=== PATIENT | female | born 1980 | race Caucasian/White ===

== ENCOUNTER 2017-10-27 11:46 | Emergency (ER) | payer OTHER, SELFPAY ==
[2017-10-27 11:47] VITALS: BP 121/86; PULSE 78; RESP 16; TEMP 36; O2SAT 98; BMI 31.5
[2017-10-27 12:37] LABS: Hemoglobin 13.4 g/dl (12.0-15.0); Mean Corp Hgb Conc 34.4 g/gl (32-36); Mean Corpuscular Hgb 31.1 pg (27.0-32.0); Mean Corpuscular Volume 90.5 fL (81-99); Mean Platelet Vol. 9.8 fl (6.2-12.0); Platelet Count 350 K/mm3 (150-450); RBC Distribution Width CV 12.6 % (11.6-14.6); RBC Distribution Width SD 41.2 fl (35.1-43.9); Red Blood Count 4.31 M/mm3 (4.2-5.4); White Blood Count 9.4 K/mm3 (4.4-11.0)
[2017-10-27 12:52] LABS: Scan Indicated on CBC? Y/N NO
[2017-10-27 13:36] LABS: Bacteria 0 SEEN /hpf (None Seen); Mucous, Urine 0 SEEN /hpf (<or=2+); Squamous Epithelial Cells - UA 0 SEEN /hpf (5-10); White Blood Cells 0 SEEN /hpf (0-5)
[2017-10-27 13:39] LABS: Color, Urine Yellow (Yellow); Glucose, Dipstick Normal (Normal); Ketone-Dipstick Negative (Negative); Leukocyte Esterase-Dipstick Negative /ul (Negative); Nitrite-Dipstick Negative (Negative); Occult Blood-Urine 50 /ul (Negative); Protein-Dipstick Negative (Negative); Urine Bilirubin Dipstick Negative (Negative); Urine Clarity Clear (Clear); Urine Urobilinogen Normal (Normal)
[2017-10-27 13:44] LABS: Red Blood Cells-Urine 0-5 SEEN /hpf (0-5)
[2017-10-27 13:45] LABS: Internal QC Validated? YES +Cl - CLEAR BKGD; Pregnancy, Urine Negative Negative
--- NOTE | 2017-10-27 14:07 | ED.VISSUMM ---
- ER Visit Summary Date of Service: 10/27/17 Chief Complaint: Vaginal bleeding History of Present Illness: The patient is a 37 F presenting with heavy vaginal bleeding for the past 2 days. She has a history of regular but very heavy menstrual periods. She has not seen an [employer] physician in several years. Today her bleeding was heavier than usual and she was passing small clots. She denies chance of . Physical Examination: A female nurse chaperoned pelvic examination reveals a closed cervix with minimal bleeding but no heavy or brisk bleeding. No clots. She does have 2 small raised fleshy appearing papular type lesions around her cervix which I informed her about. I advised that she see an [employer] physician as soon as possible to have this further evaluated. Test Results: Hemoglobin is normal here. HCG negative. Her bleeding has improved somewhat. I discussed the case with Dr. Nesha Powell to arrange close follow-up. The patient is going to call today for an appointment. She will return if she is any worse. Emergency Department Course and Treatment: Follow up closely with [employer] Treatment Plan: Disposition: Home stable condition Impression: Initial encounter vaginal bleeding This note was generated with [employer] dictation software. It may contain incorrect words, spelling, and punctuation that were not noted in review of the chart prior to signing ED Disposition - Plan for ED Patient: Chief Complaint: Vag Bleeding Instructions: ED Bleed Irregular Vaginal Referrals: Chari Bourgeois MD [STAFF PHYSICIAN] - As soon as possible
--- NOTE | 2017-10-27 14:11 | ED.DCSUM_ITS ---
- ER Visit Summary Date of Service: 10/27/17 Chief Complaint: Vaginal bleeding History of Present Illness: The patient is a 37 F presenting with heavy vaginal bleeding for the past 2 days. She has a history of regular but very heavy menstrual periods. She has not seen an [employer] physician in several years. Today her bleeding was heavier than usual and she was passing small clots. She denies chance of . Physical Examination: A female nurse chaperoned pelvic examination reveals a closed cervix with minimal bleeding but no heavy or brisk bleeding. No clots. She does have 2 small raised fleshy appearing papular type lesions around her cervix which I informed her about. I advised that she see an [employer] physician as soon as possible to have this further evaluated. Test Results: Hemoglobin is normal here. HCG negative. Her bleeding has improved somewhat. I discussed the case with Dr. Nesha Powell to arrange close follow-up. The patient is going to call today for an appointment. She will return if she is any worse. Emergency Department Course and Treatment: Follow up closely with [employer] Treatment Plan: Disposition: Home stable condition Impression: Initial encounter vaginal bleeding This note was generated with [employer] dictation software. It may contain incorrect words, spelling, and punctuation that were not noted in review of the chart prior to signing ED Disposition - Plan for ED Patient: Chief Complaint: Vag Bleeding Instructions: ED Bleed Irregular Vaginal Referrals: Chari Bourgeois MD [STAFF PHYSICIAN] - As soon as possible
[2017-10-27 14:28] VITALS: BP 120/78; PULSE 82; RESP 16; O2SAT 100
== END 2017-10-27 14:28 | disposition home or self-care (01) ==
PROVIDERS: Emergency Provider Emergency Medicine; Family Provider Family Medicine; PCP Family Medicine
DX: N93.9 Abnormal uterine and vaginal bleeding, unspecified (principal); N88.9 Noninflammatory disorder of cervix uteri, unspecified; Z79.899 Other long term (current) drug therapy; Z98.51 Tubal ligation status
CPT/HCPCS: 81001; 81025; 85027; 99284; A4216

== ENCOUNTER → 2017-10-31 14:18 | Outpatient (CLI) | payer OTHER, SELFPAY ==
[2017-10-31 15:41] LABS: Free T3 2.8 pg/mL (2.18-3.98); T4 Free Direct 1.02 ng/dL (0.76-1.46); Thyroid Stim Hormone (TSH) 1.01 uIU/mL (0.358-3.74)
[2017-11-04 18:39] LABS: HPV APTIMA, High Risk Positive (Negative)
== END ==
PROVIDERS: Visit Provider Obstetrics & Gynecology
DX: Z12.4 Encounter for screening for malignant neoplasm of cervix (principal); N92.0 Excessive and frequent menstruation with regular cycle
CPT/HCPCS: 36415; 84439; 84443; 84481; 88175; G0145

== ENCOUNTER → 2017-11-01 16:10 | Outpatient (CLI) | payer OTHER, SELFPAY ==
--- NOTE | 2017-11-01 16:13 | US_ITS ---
STUDY: ULTRASOUND OF THE FEMALE PELVIS - COMPLETE REASON FOR EXAM: Female, 37 years old. Irregular menses LMP: TECHNIQUE: Transvaginal TECHNICAL QUALITY: Adequate. COMPARISON: None. FINDINGS: The uterus is anteverted and is in a midline position. The uterus measures 9.8x5.2x3 cm. Normal uterine cervix. The endometrium measures 6 mm in thickness, and is hyperechoic. There is no demonstrated endometrial mass. There is no demonstrated myometrial mass. I.U.D. - The patient does not have an I.U.D. The right ovary is visualized. The right ovary measures 3.1x1.6x2.1 cm. There is no right ovarian cyst or ovarian mass. There is no visualized right adnexal mass or complex lesion. There is normal arterial and normal venous vascularity. The left ovary is visualized. The left ovary measures 3.1x2.1x1.8 cm. There is no left ovarian cyst or ovarian mass. There is no visualized left adnexal mass or complex lesion. There is normal arterial and normal venous vascularity. There is no fluid in the cul-de-sac. The pre void volume of the bladder was 457cc. Polycystic ovary disease: No. US/Pelvic (Non ) IMPRESSION: Normal female pelvis. Electronically Signed: New Stinson MD at 17:30 EDT , Service support ,
--- NOTE | 2017-11-01 16:27 | US_ITS ---
STUDY: ULTRASOUND OF THE FEMALE PELVIS - COMPLETE REASON FOR EXAM: Female, 37 years old. Irregular menses LMP: TECHNIQUE: Transvaginal TECHNICAL QUALITY: Adequate. COMPARISON: None. FINDINGS: The uterus is anteverted and is in a midline position. The uterus measures 9.8x5.2x3 cm. Normal uterine cervix. The endometrium measures 6 mm in thickness, and is hyperechoic. There is no demonstrated endometrial mass. There is no demonstrated myometrial mass. I.U.D. - The patient does not have an I.U.D. The right ovary is visualized. The right ovary measures 3.1x1.6x2.1 cm. There is no right ovarian cyst or ovarian mass. There is no visualized right adnexal mass or complex lesion. There is normal arterial and normal venous vascularity. The left ovary is visualized. The left ovary measures 3.1x2.1x1.8 cm. There is no left ovarian cyst or ovarian mass. There is no visualized left adnexal mass or complex lesion. There is normal arterial and normal venous vascularity. There is no fluid in the cul-de-sac. The pre void volume of the bladder was 457cc. Polycystic ovary disease: No. US/Transvaginal Non- IMPRESSION: Normal female pelvis. Electronically Signed: New Stinson MD at 17:30 EDT , Service support ,
== END ==
LOC: US 16:13
PROVIDERS: Family Provider Family Medicine; PCP Family Medicine; Referring Provider Obstetrics & Gynecology; Visit Provider Obstetrics & Gynecology
DX: N92.1 Excessive and frequent menstruation with irregular cycle (principal)
CPT/HCPCS: 76830; 76856; 93976

== ENCOUNTER → 2017-11-29 13:54 | Outpatient (CLI) | payer OTHER, SELFPAY ==
--- NOTE | 2017-11-29 | IMM_PTH ---
PATIENT: ROCHELLE SANDOVAL LOC: [facility] U#:[id number] AGE/SX: 44/F ROOM: RE11/29/[address]: Dr. Chari Powell MD : 1980 BED: DIS: SPEC #: [id number] RECD: 11/30/17 14:48 STATUS: CAROL REQ #: [id number] JENNIFER: 11/29/17 00:[address]: Chari Bustillo DEPT: IMMUNOHISTOCHEMISTRY RECD BY: Sulma Mahmood ENTERED: 11/30/17 14:49 SP TYPE: IMMUNO OTHR DR: Dr. Rochelle Ramos MD Tissues: A - Uterine cervix, NOS B - Uterine cervix, NOS Procedures: p16 (initial) KI-67 (add) PHYSICIAN & INSTITUTION [place] [address] SPECIMEN INFORMATION: Tissue Source: A - Cervical biopsy 9 o'clock, B - Cervical biopsy 1 o'clock Clinical Info: LGSIL, positive HR-HPV Specimen Number: [id number] A & B CPT code: 73566, 50181 x3 METHODOLOGY: Deparaffinized sections of prefer/formalin-fixed tissue or PAP/DQ stained slides are incubated with monoclonal/polyclonal antibodies/oligonucleotide probes. Localization is made via biotin free immunoperoxidase method. Appropriate controls are performed and reacted as expected. Results on target cell population are indicated in the following table: RESULTS: ANTIBODY / CLONE RESULT Block A P16 (E6H4) positive, focal and patchy Ki-67 (30-9) negative Block B P16 (E6H4) positive, block staining Ki-67 (30-9) positive These tests were developed and their performance characteristics determined by [facility]. They may not have been cleared or approved by the U.S. Food and Drug Administration. The FDA has determined that such clearance or approval is not necessary. INTERPRETATION: A. Cervical biopsy 9 o'clock: Focal mild squamous dysplasia. B. Cervical biopsy 1 o'clock: Mild and moderate squamous dysplasia. SJ:karl 12/01/17
--- NOTE | 2017-11-29 | CER_PTH ---
PATIENT: ROCHELLE SANDOVAL LOC: [facility] U#:[id number] AGE/SX: 44/F ROOM: RE11/29/[address]: Dr. Chari Powell MD : 1980 BED: DIS: SPEC #: [id number] RECD: 11/29/17 14:22 STATUS: CAROL KASIE #: [id number] JENNIFER: 11/29/17 00:[address]: Chari Bustillo DEPT: SURGICAL PATHOLOGY RECD BY: Rohan Sanchez ENTERED: 11/29/17 14:22 SP TYPE: CERV OTHR DR: Dr. Rochelle Ramos MD Tissues: A - Uterine cervix, NOS B - Uterine cervix, NOS C - Endocervical Procedures: Surgery Specimen Level IV HEADER OPERATION: Colposcopy PRE-OP DIAGNOSIS: LGSIL, positive HR-HPV, pap 10/31/17, LMP 11/24/17 TISSUE SUBMITTED: A - Cervical biopsy 9 o'clock, B - Cervical biopsy 1 o'clock, C - ECC MICROSCOPIC DIAGNOSIS A. Cervix, 9 o'clock, biopsy: Focal mild squamous dysplasia with HPV changes (LGSIL and JIMMIE I). See comment. B. Cervix, 1 o'clock, biopsy: Mild and moderate squamous dysplasia with HPV changes (HGSIL and JIMMIE I-II). See comment. C. ECC: Fragments of benign endocervical epithelium, benign endocervical mucosa, blood and mucous, negative for dysplasia. Fragments of benign superficial endometrial tissue. SJ:karl 11/30/17 COMMENT A & B. Immunohistochemistry ([id number]) for surrogate HPV marker (p16) supports the above diagnosis. MICROSCOPIC DESCRIPTION Slides are reviewed. GROSS DESCRIPTION A - Received in fixative is one container labeled with the patient's name and designated 9 o'clock cervical biopsy. The specimen consists of one irregular fragment of light mcclendon soft tissue that measures 0.3 x 0.3 x 0.1 cm. The specimen is totally submitted in one cassette. B - Received in fixative is one container labeled with the patient's name and designated 1 o'clock cervical biopsy. The specimen consists of one irregular fragment of light mcclendon soft tissue that measures 0.4 x 0.3 x 0.1 cm. The specimen is totally submitted in one cassette. C - Received in fixative is one container labeled with the patient's name and designated ECC. The specimen consists of multiple fragments of hemorrhagic mucoid tissue that in aggregate measure 1.5 x 1.5 x 0.1 cm. The specimen is totally submitted in one cassette. / SJ:karl 11/29/17 TC:5 CPT: 08894 x3
== END ==
PROVIDERS: Family Provider Family Medicine; PCP Family Medicine; Referring Provider Obstetrics & Gynecology; Visit Provider Obstetrics & Gynecology
DX: R87.612 Low grade squamous intraepithelial lesion on cytologic smear of cervix (LGSIL) (principal)
CPT/HCPCS: 88305; 88341; 88342

== ENCOUNTER 2017-12-15 06:57 | Day surgery (SDC) | payer OTHER, SELFPAY ==
[2017-12-13 16:21] LABS: Hematocrit 41.6 % (37-47); Hemoglobin 14.1 g/dl (12.0-15.0); Mean Corp Hgb Conc 33.9 g/gl (32-36); Mean Corpuscular Hgb 30.7 pg (27.0-32.0); Mean Corpuscular Volume 90.4 fL (81-99); Mean Platelet Vol. 10.5 fl (6.2-12.0); Platelet Count 327 K/mm3 (150-450); Prothrombin Time (Protime)PT. 12.8 SECONDS (11.7-14.9); RBC Distribution Width CV 12.8 % (11.6-14.6); RBC Distribution Width SD 42.1 fl (35.1-43.9); White Blood Count 8.7 K/mm3 (4.4-11.0)
[2017-12-13 16:22] LABS: Scan Indicated on CBC? Y/N NO
[2017-12-15] VITALS (8 sets, daily range): BP systolic 79–115; BP diastolic 53–67; PULSE 62–69; RESP 16; TEMP 36.5–37.3; O2SAT 93–100; BMI 31.6
--- NOTE | 2017-12-15 | CER_PTH ---
PATIENT: ROCHELLE SANDOVAL LOC: [facility] U#:[id number] AGE/SX: 37/F ROOM: RE12/15/[address]: Dr. Chari Powell MD : 1980 BED: DIS: 12/15/2017 SPEC #: [id number] RECD: 12/15/17 11:53 STATUS: CAROL KASIE #: [id number] JENNIFER: 12/15/17 00:[address]: Chari Bustillo DEPT: SURGICAL PATHOLOGY RECD BY: Rohan Sanchez ENTERED: 12/15/17 11:53 SP TYPE: CERV OTHR DR: Dr. Rochelle Ramos MD Tissues: A - Uterine cervix, NOS B - Endocervical Procedures: Surgery Specimen Level IV Surgery Specimen Level V HEADER OPERATION: LEEP cone PRE-OP DIAGNOSIS: Excessive and frequent menstruation with irregular cycle, low-grade squamous intraepithelial lesion on cytological smear of cervix and high grade cervical dysplasia TISSUE SUBMITTED: A - Ectocervix - open at 9 o'clock, B - Endocervical curettings MICROSCOPIC DIAGNOSIS A. Ectocervix, LEEP conization: Mild squamous dysplasia with HPV changes (LGSIL and JIMMIE I). Chronic cystic cervicitis. The resection margins are free of dysplastic changes. B. Endocervical curettings: Fragments of benign endocervical mucosa, negative for dysplasia. SJ:karl 12/16/17 COMMENT Results from immunohistochemistry ([id number]) for surrogate HPV marker (p16) will be reported separately. Please make reference to previous specimen ([id number]), cervix, 9 o'clock, biopsy with diagnosis of focal mild squamous dysplasia and cervix, 1 o'clock, biopsy with diagnosis of mild and moderate squamous dysplasia with HPV changes. This case has been reviewed in consultation with Dr. Bagley who concurs with the above diagnosis. MICROSCOPIC DESCRIPTION Slides are reviewed. GROSS DESCRIPTION A - Received in fixative is one container labeled with the patient's name and designated ectocervix opened at 9 o'clock. The specimen consists of a mcclendon, indurated piece of tissue measuring 3 x 1.8 cm and up to 1 cm in thickness. No mucosal lesion is identified. The nonmucosal surface is inked black. The specimen is serially sectioned and submitted in four cassettes as follows: 1 - 12 to 3 o'clock, 2 - 3 to 6 o'clock, 3 - 6 to 9 o'clock, 4 - 9 to 12 o'clock. B - Received in fixative is one container labeled with the patient's name and designated endocervical curettings. The specimen consists of multiple irregular fragments of mcclendon soft tissue that in aggregate measure 0.4 x 0.2 x 0.1 cm. The specimen is totally submitted in one cassette. / SJ:rg 12/15/17 TC:5 CPT: 19389, 09150
--- NOTE | 2017-12-15 | IMM_PTH ---
PATIENT: ROCHELLE SANDOVAL LOC: [facility] U#:[id number] AGE/SX: 37/F ROOM: RE12/15/[address]: Dr. Chari Powell MD : 1980 BED: DIS: 12/15/2017 SPEC #: [id number] RECD: 12/16/17 11:57 STATUS: CAROL REQ #: [id number] JENNIFER: 12/15/17 00:[address]: Chari Bustillo DEPT: IMMUNOHISTOCHEMISTRY RECD BY: Sulma Mahmood ENTERED: 12/16/17 11:58 SP TYPE: IMMUNO OTHR DR: Dr. Rochelle Ramos MD Tissues: A - Uterine cervix, NOS Procedures: p16 (initial) KI-67 (add) P16 (add) PHYSICIAN & INSTITUTION [place] [address] SPECIMEN INFORMATION: Tissue Source: A - Ectocervix, open at 9 o'clock Clinical Info: Excessive and frequent menstruation with irregular cycle, LGSIL and high grade cervical dysplasia Specimen Number: [id number] A1-A4 CPT code: 51707, 05115 x7 METHODOLOGY: Deparaffinized sections of prefer/formalin-fixed tissue or PAP/DQ stained slides are incubated with monoclonal/polyclonal antibodies/oligonucleotide probes. Localization is made via biotin free immunoperoxidase method. Appropriate controls are performed and reacted as expected. Results on target cell population are indicated in the following table: RESULTS: ANTIBODY / CLONE RESULT Block A1 P16 (E6H4) negative Ki-67 (30-9) negative Block A2 P16 (E6H4) negative Ki-67 (30-9) negative Block A3 P16 (E6H4) negative Ki-67 (30-9) negative Block A4 P16 (E6H4) negative Ki-67 (30-9) negative These tests were developed and their performance characteristics determined by [facility]. They may not have been cleared or approved by the U.S. Food and Drug Administration. The FDA has determined that such clearance or approval is not necessary. INTERPRETATION: A. Ectocervix, LEEP conization: Focal mild dysplasia with HPV changes SJ:cc
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
[2017-12-15 07:21] LABS: Internal QC Validated? YES +Cl - CLEAR BKGD; Pregnancy, Urine Negative Negative
[2017-12-15] MEDS: FERRIC SUBSULFATE 8 GM SOLN (09:50)
--- NOTE | 2017-12-15 10:12 | OP.PCM_ITS ---
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 ectocervix - open at 9 o'clock. 2. endocervical curettings Estimated Blood Loss (mL): 5 Fluids Replaced: 1150ml Description of Procedure: Indications: Ms. Hugehs is a 37-year-old para 2 with a history of excessive and frequent menstruation with regular cycle and LGSIL. She had a colposcopy demonstrating JIMMIE-1 and JIMMIE-2. An office endometrial biopsy showed benign pathology. Following counseling she opted to proceed with LEEP and endometrial ablation hysteroscopy. Risks, benefits, indications and alternatives of procedures were reviewed at length. Informed consent was obtained. Procedure: The patient was taken to the operating room and signed and was performed she was placed in the dorsal supine position and induced under MAC anesthetic. She was then repositioned into dorsal lithotomy and examination under anesthesia performed. The perineum and vagina were prepped and draped in sterile fashion. Straight catheterization of the bladder was performed. A weighted speculum placed into the vagina and the cervix visualized and grasped the anterior cervical lip using a single-tooth tenaculum. A total of 20 cc of 1% lidocaine with epinephrine 1 and 100,000 was administered for paracervical block. The uterus sounded to 8 cm. The cervix was subsequently dilated and hysteroscopy performed demonstrating normal endometrial cavity without polyps or submucosal fibroids. The hysteroscope was removed and the cervix was up dilated. The cervical length was obtained at 2 cm. Seble endometrial ablative system was introduced into the uterine cavity with successful cavity integrity soaked assessment. The ablative cycle was performed 420 seconds and completed. The Seble was removed from the endometrial cavity. Hysteroscopy was again performed confirming no defects in the uterus. The hysteroscope was removed. The tenaculum was removed from the cervix. Lugol's solution was applied to the ectocervix with notable resistance at 12 to 1 o'clock. LEEP was performed with ectocervical biopsy. An endocervical curettage touch was also performed. Fulguration of the LEEP excisional bed was performed and Monsel's solution was applied with excellent hemostasis. Procedure was complete. Sponge counts were correct x2. The patient was then placed into dorsal supine position, awakened and transferred to the recovery room without complication. - Admit VTE Documentation VTE Present on Admission: No VTE Mechan Device Prophylaxis: [facility]'s VTE Pharm Prophylaxis ordered?: No
--- NOTE | 2017-12-15 10:19 | EKG12_ITS ---
Test Reason : ST DEPRESSION Blood Pressure : / mmHG Vent. Rate : 061 BPM Atrial Rate : 061 BPM P-R Int : 170 ms QRS Dur : 086 ms QT Int : 422 ms P-R-T Axes : 041 078 060 degrees QTc Int : 424 ms Normal sinus rhythm Normal ECG When compared with ECG of 26-AUG-2016 10:39, Vent. rate has increased BY 21 BPM Confirmed by ROBSON LIU, DAWNA ([id number]), primer expeditor and drier ZELDA AGUIRRE ([id number]) on 12/19/2017 2:45:25 PM Referred By: Chari Bourgeois Confirmed By:DAWNA CHANCE MD
--- NOTE | 2017-12-15 10:20 | DCINST_ITS ---
Discharge Diet: No Restrictions Discharge Activity: Return to Normal Activity, May Shower, - - No tub bath x 2 weeks, no driving for 24 hours May resume sexual activity in: 4 weeks Lifting Restrictions: 20 lb Call your doctor if you observe: Fever of 101 or Higher, Inability to urinate, Inability to have a bowel movement, Using more than one pad per hour, Shortness of breath, Chest pain, Calf discomfort, Uncontrolled pain Allergies/Adverse Reactions: Allergies adhesive Allergy (Verified 08/23/16 11:28) Rash cephalexin monohydrate [From Keflex] Allergy (Verified 08/23/16 11:28) Hives sulfamethoxazole [From Bactrim] Allergy (Verified 08/23/16 11:28) Hives trimethoprim [From Bactrim] Allergy (Verified 08/23/16 11:28) Hives morphine Adverse Reaction (Verified 08/25/16 11:16) Chest tightness Medications to take at Discharge Ibuprofen 600 mg PO TID PRN #30 tab 12/15/17 The following prescriptions were given: Ibuprofen 600 mg PO TID PRN #30 tab PRN Reason: Pain Primary Care Physician: Rochelle Ramos MD [Primary Care Provider] - Test Results: Test results from this visit will be discussed in further detail at your follow- up appointment, if applicable. Please Follow Up With: Chari Bourgeois MD When: 2-4 weeks
== END 2017-12-15 12:06 | disposition home or self-care (01) ==
LOC: SDC 06:57 → AC 06:58
PROVIDERS: Anesthesiology; Family Provider Family Medicine; PCP Family Medicine; Referring Provider Obstetrics & Gynecology; Visit Provider Obstetrics & Gynecology
PROC: 0UBC7ZZ Excision of Cervix, Via Natural or Artificial Opening (ICD-10-PCS; CPT 57522; principal; 2017-12-15 08:30)
PROC: 0U5B8ZZ Destruction of Endometrium, Via Natural or Artificial Opening Endoscopic (ICD-10-PCS; CPT 58558; 2017-12-15 08:30)
DX: N87.0 Mild cervical dysplasia (principal); N72 Inflammatory disease of cervix uteri; F17.200 Nicotine dependence, unspecified, uncomplicated; Z98.51 Tubal ligation status
CPT/HCPCS: 57522; 58563; 36415; 81025; 84484; 85027; 85610; 85730; 86850; 86900; 88305; 88307; 88341; 88342; 93005; J7120; J2405

== ENCOUNTER 2017-12-29 23:28 | Emergency (ER) | payer OTHER, SELFPAY ==
[2017-12-29 23:28] VITALS: BP 151/79; PULSE 80; RESP 20; TEMP 36.8; O2SAT 99; BMI 32.1
--- NOTE | 2017-12-30 01:32 | ED.VISSUMM ---
- ER Visit Summary Date of Service: 12/30/17 Chief Complaint: Pelvic pain and vaginal bleeding History of Present Illness: The patient is a 37 F presenting for 5 days of pelvic pain and vaginal bleeding after a LEEP procedure and uterine ablation 2 weeks ago. Patient had the uterine ablation performed due to heavy uterine bleeding. 5 days ago she began having pelvic pain and vaginal bleeding, and she states the vaginal bleeding is a brown discharge with a foul odor, sometimes with blood noted. She thought it was her period. She has passed one mass of a blue tinged tissue. She is having sharp stabbing pelvic pain that is different from her normal achy menstrual cramps. No dysuria. No dizziness, fever, chest pain, shortness of breath, nausea or vomiting. She is having loose stool for 3 days. Physical Examination: Vital signs: afebrile, hemodynamically stable, no hypoxia on room air General: well nourished, well developed, in no distress Skin: warm, dry, no rash, no pallor HEENT: normocephalic and atraumatic; PERRL, EOMI, moist mucous membranes Cardiovascular: regular rate and rhythm without murmurs, no peripheral edema, 2+ pulses all distal extremities Respiratory: No increased work of breathing, lungs are clear to auscultation bilaterally, no rales, rhonchi or wheezing Abdominal: Abdomen is soft, tender in the lower quadrants with normoactive bowel sounds, no guarding or rebound, no masses : no external genital lesions; thin whitish brown homogenous discharge with foul odor, cervical tenderness, unable to visualize the cervix secondary to lack of appropriate speculum light source; no adnexal tenderness or masses MSK: Moves all extremities, no deformities, normal strength Neuro: Awake and alert, oriented ?4. No facial droop, sensation and motor function intact and symmetric Test Results: Abnormal Lab Results 12/30/17 12/30/17 12/30/17 00:40 00:40 01:47 WBC 14.3 H RBC 4.17 L Hgb 12.8 Hct 37.8 MCV 90.6 MCH 30.7 MCHC 33.9 RDW 12.5 RDW Differential 40.9 Plt Count 405 MPV 9.8 Immature Gran % (Auto) 0.400 Neut % (Auto) 72.4 H Lymph % (Auto) 19.5 [place] % (Auto) 5.7 Eos % (Auto) 1.7 Baso % (Auto) 0.3 Absolute Neuts (auto) 10.3 H Absolute Lymphs (auto) 2.78 Total Counted Not Reportable Sodium Potassium Chloride Carbon Dioxide Anion Gap BUN Creatinine Estim Creat Clear Calc Est GFR (MDRD) Af Amer Est GFR (MDRD) Non-Af BUN/Creatinine Ratio Glucose Lactic Acid Calcium Urine Color Yellow Urine Clarity Sl. Cloudy Urine pH 6.5 Ur Specific [place] 1.015 Urine Protein Negative Urine Glucose (UA) Normal Urine Ketones Negative Urine Occult Blood 150 H Urine Nitrite Negative Urine Bilirubin Negative Urine Urobilinogen Normal Ur Leukocyte Esterase 500 H Urine RBC 0-5 SEEN Urine WBC 5-10 SEEN Ur Squamous Epith Cells 0-5 SEEN Urine Bacteria RARE Urine Mucus 0 SEEN Urine Test Negative 12/30/17 12/30/17 12/30/17 01:47 01:47 02:34 WBC RBC Hgb Hct MCV MCH MCHC RDW RDW Differential Plt Count MPV Immature Gran % (Auto) Neut % (Auto) Lymph % (Auto) [place] % (Auto) Eos % (Auto) Baso % (Auto) Absolute Neuts (auto) Absolute Lymphs (auto) Total Counted Sodium 137 Potassium 4.8 Chloride 106 Carbon Dioxide 26.0 Anion Gap 5 BUN 12 Creatinine 0.69 Estim Creat Clear Calc 85.05 Est GFR (MDRD) Af Amer 122 Est GFR (MDRD) Non-Af 101 BUN/Creatinine Ratio 17.3 Glucose 100 Lactic Acid Cancelled 0.8 Calcium 8.8 Urine Color Urine Clarity Urine pH Ur Specific [place] Urine Protein Urine Glucose (UA) Urine Ketones Urine Occult Blood Urine Nitrite Urine Bilirubin Urine Urobilinogen Ur Leukocyte Esterase Urine RBC Urine WBC Ur Squamous Epith Cells Urine Bacteria Urine Mucus Urine Test Medications Given Discontinued Medications Sodium Chloride () 1,000 mls @ 1,000 mls/hr IV .Q1H ONE Stop: 12/30/17 02:29 Last Admin: 12/30/17 02:12 Dose: 1,000 mls/hr Ketorolac Tromethamine (Toradol) 15 mg IV X1 ONE Stop: 12/30/17 01:32 Last Admin: 12/30/17 02:12 Dose: 15 mg Ketorolac Tromethamine (Toradol) 15 mg IV X1 ONE Stop: 12/30/17 03:27 Last Admin: 12/30/17 03:38 Dose: 15 mg Metronidazole (Flagyl) 500 mg PO X1 ONE Stop: 12/30/17 03:30 Last Admin: 12/30/17 03:37 Dose: 500 mg Emergency Department Course and Treatment: Patient was given IV fluids and Toradol for her discomfort. She had improvement of her pelvic pain with the Toradol. negative. Urine showed leukocytosis with mild pyuria. Patient did not have any complaint of urinary symptoms. Patient had leukocytosis of 14.3. No electrolyte derangements. Lactate was normal. Patient's examination did show a malodorous brownish white thin discharge. Patient was discussed with Dr. Alvarado, who states this is a normal finding after the procedures the patient had. No pelvic ultrasound is necessary at this time. He did recommend starting patient on metronidazole in case there is not a component of bacterial vaginosis, as the change in pH from the LEEP procedure and uterine ablation can result in overgrowth of the normal vaginal lourdes. Patient was started on metronidazole. She received an additional dose of Toradol and will use [id number] NSAIDs at home as needed for pain. 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 Patient was discharged home in improved condition. Treatment Plan: [] Disposition: [] Impression: Postprocedural vaginal discharge and postprocedural pelvic pain, bacterial vaginosis This note was generated with [employer] dictation software. It may contain incorrect words, spelling, and punctuation that were not noted in review of the chart prior to signing ED Disposition - Plan for ED Patient: Disposition: Home or Assisted Living Chief Complaint: Female C/O Instructions: Vaginal Infection: Bacterial Vaginosis, ED Pelvic Pain [facility]O Prescriptions: RX: Metronidazole 500 mg PO BID #13 tab Referrals: Rochelle Ramos MD [Primary Care Provider] - Chari Bourgeois MD [STAFF PHYSICIAN] - 1 Week if not improving Additional Instructions: Please follow-up with Dr. Neena Powell if you continue to have concerns about the vaginal discharge and pelvic pain. Use naproxen or ibuprofen as needed for pain. Take the antibiotic twice daily for 5 days. Do not drink alcohol while taking this medication. If you have any worsening of your condition or any new concerning symptoms, please return immediately to the emergency department for another evaluation.
[2017-12-30 01:48] LABS: Color, Urine Yellow (Yellow); Glucose, Dipstick Normal (Normal); Ketone-Dipstick Negative (Negative); Leukocyte Esterase-Dipstick 500 /ul (Negative); Mucous, Urine 0 SEEN /hpf (<or=2+); Nitrite-Dipstick Negative (Negative); Occult Blood-Urine 150 /ul (Negative); Protein-Dipstick Negative (Negative); Specific Gravity, Urine 1.015 (1.002-1.030); Urine Bilirubin Dipstick Negative (Negative); Urine Clarity Sl. Cloudy (Clear); Urine Urobilinogen Normal (Normal); Urine pH 6.5 (5.0 - 8.0)
[2017-12-30 01:52] LABS: Internal QC Validated? YES +Cl - CLEAR BKGD; Pregnancy, Urine Negative Negative
[2017-12-30 01:58] LABS: Bacteria RARE /hpf (None Seen); Red Blood Cells-Urine 0-5 SEEN /hpf (0-5); Squamous Epithelial Cells - UA 0-5 SEEN /hpf (5-10); White Blood Cells 5-10 SEEN /hpf (0-5)
[2017-12-30 01:59] LABS: Absolute Lymphocyte Count 2.78 X10^3/ul (0.83-4.51); Absolute Neutrophil Count 10.3 X10^3/uL (2.0-7.7); Basophil# 0.04 X10^3/uL; Basophil% 0.3 % (0-1); Eosinophil# 0.24 X10^3/uL; Eosinophils% 1.7 % (0-5); Hematocrit 37.8 % (37-47); Hemoglobin 12.8 g/dl (12.0-15.0); Lymphocyte # 2.78 X10^3/ul (4.0); Lymphocyte % 19.5 % (19-41); Mean Corp Hgb Conc 33.9 g/gl (32-36); Mean Corpuscular Hgb 30.7 pg (27.0-32.0); Mean Corpuscular Volume 90.6 fL (81-99); Mean Platelet Vol. 9.8 fl (6.2-12.0); Monocyte# 0.82 X10^3/uL; Monocyte% 5.7 % (0-10); Neutrophil # 10.34 X10^3/uL (2.7-7.7); Neutrophil % 72.4 % (47-70); POSITIVE COUNT NO; POSITIVE DIFFERENTIAL NO; POSITIVE MORPHOLOGY NO; Platelet Count 405 K/mm3 (150-450); RBC Distribution Width CV 12.5 % (11.6-14.6); RBC Distribution Width SD 40.9 fl (35.1-43.9); Red Blood Count 4.17 M/mm3 (4.2-5.4); White Blood Count 14.3 K/mm3 (4.4-11.0)
[2017-12-30] MEDS: Ketorolac 15 MG/ML Vial IV ×2 (02:12→03:38)
[2017-12-30] MEDS: 0.9% Normal Saline 1,000 ML 1000 ML IV (02:12)
[2017-12-30 02:24] LABS: Anion Gap 5 (5-15); BUN 12 mg/dL (7-18); BUN/Creat Ratio 17.3 RATIO (10-20); Calcium,Total 8.8 mg/dL (8.5-10.1); Chloride 106 mmol/L (98-107); Creatinine, Serum 0.69 mg/dL (0.55-1.02); EST Glomerular Filtration Rate 101 mL/min (>60); Est Glom Filt Rate - Afr Amer 122 mL/min (>60); Estimated Creatinine Clearance 85.05 ml/min; Glucose 100 mg/dL (74-106); Potassium 4.8 mmol/L (3.5-5.1); Sodium Level 137 mmol/L (136-145)
[2017-12-30 03:18] LABS: Lactic Acid 0.8 mmol/L (0.4-2.0)
[2017-12-30] MEDS: metroNIDAZOLE 500 MG Tablet PO (03:37)
--- NOTE | 2017-12-30 03:43 | ED.DEP ---
ED Disposition - Plan for ED Patient: Disposition: Home or Assisted Living Chief Complaint: Female C/O Instructions: Vaginal Infection: Bacterial Vaginosis, ED Pelvic Pain UKO Prescriptions: Metronidazole 500 mg PO BID #13 tab Referrals: Rochelle Ramos MD [Primary Care Provider] - Chari Bourgeois MD [STAFF PHYSICIAN] - 1 Week if not improving Additional Instructions: Please follow-up with Dr. Neena Powell if you continue to have concerns about the vaginal discharge and pelvic pain. Use naproxen or ibuprofen as needed for pain. Take the antibiotic twice daily for 5 days. Do not drink alcohol while taking this medication. If you have any worsening of your condition or any new concerning symptoms, please return immediately to the emergency department for another evaluation.
[2017-12-30 03:51] VITALS: BP 125/86; PULSE 60; RESP 18; O2SAT 97
== END 2017-12-30 03:52 | disposition home or self-care (01) ==
PROVIDERS: Emergency Provider Emergency Medicine; Family Provider Family Medicine; PCP Family Medicine
DX: N76.0 Acute vaginitis (principal); G89.18 Other acute postprocedural pain; R10.2 Pelvic and perineal pain; N89.8 Other specified noninflammatory disorders of vagina; N39.0 Urinary tract infection, site not specified; R19.7 Diarrhea, unspecified
CPT/HCPCS: 36415; 80048; 81001; 81025; 83605; 85025; 96374; 96376; 99284; J7030; A4216

== ENCOUNTER 2018-04-23 10:38 | Emergency (ER) | payer OTHER, SELFPAY ==
[2018-04-22 09:19] VITALS: BMI 32.1
[2018-04-23 10:40] VITALS: BP 133/68; PULSE 62; RESP 12; TEMP 36.8; O2SAT 99; BMI 29.3
--- NOTE | 2018-04-23 10:59 | ED.VISSUMM ---
- ER Visit Summary Date of Service: 04/23/18 Chief Complaint: Neck pain back pain History of Present Illness: The patient is a 38 F who presents with neck and back pain myalgias and slight headache, she has some upper airway congestion. She denies any fever but she is complaining of chills. This is been ongoing for about 4 days. She denies any chest pain but she is complaining of right neck pain anteriorly also. Physical Examination: She has unremarkable vitals, heart is regular lungs are clear bilaterally she has upper airway congestion, swollen nasal turbinates, she has postnasal drip and right-sided anterior lymphadenopathy. She has paraspinal neck pain and upper back pain including part of the trapezius. She has normal strength and sensation distally in both arms able to ambulate well. Emergency Department Course and Treatment: Patient has upper airway congestion with myalgias, this is likely a viral illness. It has been ongoing for 4 days even if it is influenza is outside any treat regardless she appears well she is clear lungs and has normal vitals we will treat her symptomatically. Disposition: Discharge stable condition Impression: Myalgias Upper airway congestion This note was generated with [employer] dictation software. It may contain incorrect words, spelling, and punctuation that were not noted in review of the chart prior to signing ED Disposition - Plan for ED Patient: Disposition: Home or Assisted Living Instructions: ED Muscle Aching, ED URI Viral Prescriptions: Naproxen [Naprosyn] 500 mg PO BID PRN #20 tab Cyclobenzaprine [Flexeril] 10 mg PO TID PRN #20 tab PRN Reason: Muscle Spasm Referrals: Rochelle Ramos MD [Primary Care Provider] - 3-5 Days
== END 2018-04-23 11:36 | disposition home or self-care (01) ==
PROVIDERS: Emergency Provider Emergency Medicine; Family Provider Family Medicine; PCP Family Medicine
DX: M79.10 Myalgia, unspecified site (principal); J06.9 Acute upper respiratory infection, unspecified; Z72.0 Tobacco use
CPT/HCPCS: 99282

== ENCOUNTER 2018-05-02 09:05 | Emergency (ER) | payer OTHER, SELFPAY ==
[2018-05-02 09:06] VITALS: BP 135/88; PULSE 101; RESP 15; TEMP 36.3; BMI 29.5
--- NOTE | 2018-05-02 09:20 | CT_ITS ---
STUDY: CT ABDOMEN AND PELVIS WITHOUT CONTRAST REASON FOR EXAM: Female, 38 years old. Left-sided flank pain. RADIATION DOSAGE (If Supplied By Facility): CTDIvol = ( 8.61 ) mGy, DLP = ( 387.04 ) mGycm TECHNIQUE: Transaxial images were obtained from the dome of the diaphragm to the symphysis pubis without oral contrast, and without intravenous contrast. Sagittal and coronal images were reconstructed. Individualized dose optimization techniques were used for this CT. COMPARISON: Comparison is made with prior study dated August 23, 2016. FINDINGS: The visualized lung bases are unremarkable. The visualized portions of the heart are within normal limits. Normal liver. The patient is status post cholecystectomy. Normal spleen. Normal pancreas. Normal bilateral adrenal glands. Punctate calcification in the upper pole calyx of the right kidney. Punctate calcification in the lower pole calyx of the right kidney. There is also evidence of a 2 mm calculus in the lower pole calyx of the right kidney. 2 mm calculus in the lower pole calyx of the left kidney. Mild degree of left hydronephrosis. A 2 mm calculus is seen at the base of the bladder on the left side suggestive of a recently passed calculus. Normal visualized stomach. Normal small intestine. Normal colon. The appendix is visualized and appears normal. Normal abdominal aorta. Normal inferior vena cava. Normal retroperitoneum. Normal urinary bladder. There is evidence of bilateral tubal ligation. Follicles are seen in the left ovary. Normal abdominal wall. Normal osseous structures. CT/Abdomen/Pelvis without Cont IMPRESSION: Mild left hydronephrosis. 2 mm calculus at the base of the bladder on the left side suggestive of a recently passed calculus. Small bilateral nonobstructive intrarenal calculi. Electronically Signed: Shilo Santos, at 10:27 EDT , Service support ,
--- NOTE | 2018-05-02 09:20 | CALC_PTH ---
PATIENT: ROCHELLE SANDOVAL LOC: ED U#:[id number] AGE/SX: 38/F ROOM: RE05/02/[address]: Dr. Lars Branch DO : 1980 BED: DIS: 05/02/2018 SPEC #: [id number] RECD: 05/02/18 10:37 STATUS: CAROL KASIE #: [id number] JENNIFER: 05/02/18 09:[address]: Lars Branch DEPT: SURGICAL PATHOLOGY RECD BY: Alan Hernandez ENTERED: 05/02/18 11:34 SP TYPE: Calculi OTHR DR: Dr. Rochelle Ramos MD Tissues: CALCULI Procedures: Surgery Specimen Level I HEADER OPERATION: Not noted PRE-OP DIAGNOSIS: Kidney stone TISSUE SUBMITTED: Calculi GROSS DIAGNOSIS A fragment of stone, clinically kidney stone, submitted for analysis. SJ:karl 05/02/18 COMMENT The calculus is submitted in its entirety for chemical stone analysis. The results from this study will be reported separately. GROSS DESCRIPTION Received is one container labeled with the patient's name and not further designated. The specimen consists of a fragment of brownish black stone measuring 0.3 x 0.2 x 0.1 cm. The entire specimen is submitted for stone analysis. / MAL:karl 05/02/18 CPT: 05008
--- NOTE | 2018-05-02 09:22 | ED.VISSUMM ---
- ER Visit Summary Date of Service: 05/02/18 Chief Complaint: Left flank pain History of Present Illness: The patient is a 38 F who presents with left flank pain that began today while she was at work. Patient states the pain radiated to her left anterior abdomen. Patient states the pain feels similar to prior kidney stones. Patient states it is been approximately 10 years since her last kidney stone. Patient admits to some mild hematuria today but denies any dysuria. Patient admits to some nausea but denies any vomiting. Patient denies any diarrhea, melena, or hematochezia. Physical Examination: Vital signs are stable. Patient is afebrile. Patient is in no acute distress. Oral mucosa is pink and moist. Neck is supple. Trachea is midline. Heart was regular rate and rhythm. Lungs are clear and equal bilateral. Abdomen is soft. Bowel sounds are normal. There is some mild left mid abdominal tenderness and left CVA tenderness. There is no rebound or guarding noted. Cranial nerves II through XII are intact. There are no focal motor or sensory deficits noted. The remaining physical exam is within normal limits. Test Results: Urinalysis does not show any evidence of urinary tract infection. There is some mild hematuria. CT scan of the abdomen pelvis shows punctate stones in both kidneys. There is a 2 mm calculus in the bladder with mild left hydronephrosis. There was a small stone in the urine. This was sent for analysis. Emergency Department Course and Treatment: Patient was given Toradol and Zofran here. Patient was given IV fluids. Patient felt better on reevaluation. Patient was instructed to drink plenty of fluids. Patient was instructed to follow-up with her primary care physician in 5-7 days. Patient understood and was agreeable with the plan. All questions were answered. Disposition: Discharge home Impression: Ureteral lithiasis This note was generated with [employer] dictation software. It may contain incorrect words, spelling, and punctuation that were not noted in review of the chart prior to signing ED Disposition - Plan for ED Patient: Disposition: Home or Assisted Living Diagnosis: Ureteral calculus, left Instructions: ED Stone Renal Passed Referrals: Rochelle Ramos MD [Primary Care Provider] - 5-7 Days
--- NOTE | 2018-05-02 09:25 | ED.DCSUM_ITS ---
- ER Visit Summary Date of Service: 05/02/18 Chief Complaint: Left flank pain History of Present Illness: The patient is a 38 F who presents with left flank pain that began today while she was at work. Patient states the pain radiated to her left anterior abdomen. Patient states the pain feels similar to prior kidney stones. Patient states it is been approximately 10 years since her last kidney stone. Patient admits to some mild hematuria today but denies any dysuria. Patient admits to some nausea but denies any vomiting. Patient denies any diarrhea, melena, or hematochezia. Physical Examination: Vital signs are stable. Patient is afebrile. Patient is in no acute distress. Oral mucosa is pink and moist. Neck is supple. Trachea is midline. Heart was regular rate and rhythm. Lungs are clear and equal bilateral. Abdomen is soft. Bowel sounds are normal. There is some mild left mid abdominal tenderness and left CVA tenderness. There is no rebound or guarding noted. Cranial nerves II through XII are intact. There are no focal motor or sensory deficits noted. The remaining physical exam is within normal limits. Test Results: Urinalysis does not show any evidence of urinary tract infection. There is some mild hematuria. CT scan of the abdomen pelvis shows punctate stones in both kidneys. There is a 2 mm calculus in the bladder with mild left hydronephrosis. There was a small stone in the urine. This was sent for analysis. Emergency Department Course and Treatment: Patient was given Toradol and Zofran here. Patient was given IV fluids. Patient felt better on reevaluation. Fidencio alisha was instructed to drink plenty of fluids. Patient was instructed to follow-up with her primary care physician in 5-7 days. Patient understood and was agreeable with the plan. All questions were answered. Disposition: Discharge home Impression: Ureteral lithiasis This note was generated with [employer] dictation software. It may contain incorrect words, spelling, and punctuation that were not noted in review of the chart prior to signing ED Disposition - Plan for ED Patient: Disposition: Home or Assisted Living Diagnosis: Ureteral calculus, left Instructions: ED Stone Renal Passed Referrals: Rochelle Ramos MD [Primary Care Provider] - 5-7 Days
[2018-05-02 09:27] LABS: Bacteria 0 SEEN /hpf (None Seen); Mucous, Urine 0 SEEN /hpf (<or=2+); Squamous Epithelial Cells - UA 0 SEEN /hpf (5-10); White Blood Cells 0 SEEN /hpf (0-5)
[2018-05-02 09:36] LABS: Color, Urine Yellow (Yellow); Glucose, Dipstick Normal (Normal); Ketone-Dipstick Negative (Negative); Leukocyte Esterase-Dipstick Negative /ul (Negative); Nitrite-Dipstick Negative (Negative); Occult Blood-Urine 150 /ul (Negative); Protein-Dipstick Negative (Negative); Specific Gravity, Urine 1.015 (1.002-1.030); Urine Bilirubin Dipstick Negative (Negative); Urine Clarity Clear (Clear); Urine Urobilinogen Normal (Normal); Urine pH 6.5 (5.0 - 8.0)
[2018-05-02] MEDS: 0.9% Normal Saline 1,000 ML 250 ML IV (09:37)
[2018-05-02] MEDS: Ondansetron 4 MG/2 ML Vial IV (09:37)
[2018-05-02] MEDS: Ketorolac 30 MG/ML Syringe IV (09:43)
[2018-05-02 10:02] LABS: Red Blood Cells-Urine 5-10 SEEN /hpf (0-5)
[2018-05-02 12:01] VITALS: BP 118/70; PULSE 61; RESP 16; O2SAT 97
[2018-05-08 20:06] LABS: Ca Oxalate, Monohydrate 95 % (.)
== END 2018-05-02 12:02 | disposition home or self-care (01) ==
PROVIDERS: Emergency Provider Emergency Medicine; Family Provider Family Medicine; PCP Family Medicine
DX: N13.2 Hydronephrosis with renal and ureteral calculous obstruction (principal); N21.0 Calculus in bladder; R31.9 Hematuria, unspecified; Z72.0 Tobacco use; Z87.442 Personal history of urinary calculi
CPT/HCPCS: 74176; 81001; 82360; 88300; 96361; 96374; 96375; 99284; J7030; A4216; J2405

== ENCOUNTER → 2019-04-16 16:15 | Outpatient (CLI) | payer OTHER, SELFPAY ==
[2019-04-16 18:39] LABS: Thyroid Stim Hormone (TSH) 1.38 uIU/mL (0.358-3.74)
== END ==
PROVIDERS: PCP Family Medicine; Referring Provider Family Medicine; Visit Provider Family Medicine
DX: L80 Vitiligo (principal)
CPT/HCPCS: 36415; 84443

== ENCOUNTER → 2020-02-20 | Outpatient (CLI) | payer OTHER, SELFPAY ==
[2020-02-25 16:23] LABS: HPV Reflexed? NOT INDICATED
== END | disposition home or self-care (01) ==
PROVIDERS: PCP Family Medicine; Referring Provider Family Medicine; Visit Provider Family Medicine
DX: Z12.4 Encounter for screening for malignant neoplasm of cervix (principal)
CPT/HCPCS: 88175; G0145

== ENCOUNTER 2020-09-08 12:48 | Emergency (ER) | payer OTHER, SELFPAY ==
[2020-09-08 12:49] VITALS: BP 175/99; PULSE 94; RESP 16; TEMP 37.3; O2SAT 98; BMI 32.8
--- NOTE | 2020-09-08 13:19 | EX.ED.UPPERE ---
HPI History of Present Illness Chief Complaint: Upper Extremity Injury Informant: patient Narrative Narrative: Patient's been having pain on her left shoulder area for about a week and a half maybe 2 weeks. Occasionally it radiates down past the elbow goes into her hand. Occasionally she feels tingling. She has no trauma or injury. No recent infections. No fevers or chills. Nothing that she can really think of makes it better or worse. Sometimes moving it bothers it but other times it does not. She has had no change in behavior activity or her work. She does not have any weakness. [facility] Medical History ADD (attention deficit disorder) Home Medications cyclobenzaprine 10 mg PO TID PRN #9 tab 09/08/20 [Rx Last Taken Unknown] loratadine [Claritin] 10 mg PO DAILY PRN 09/08/20 [History Last Taken Unknown] methylphenidate HCl [Concerta] 54 mg PO DAILY 09/08/20 [History Last Taken Unknown] naproxen [Naprosyn] 500 mg PO BID PRN #20 tab 09/08/20 [Rx Last Taken Unknown] Allergy/AdvReac Type Severity Reaction Status Date / Time adhesive Allergy Rash Verified 09/08/20 12:51 cephalexin monohydrate Allergy Hives Verified 09/08/20 12:51 [From Keflex] sulfamethoxazole Allergy Hives Verified 09/08/20 12:51 [From Bactrim] trimethoprim [From Bactrim] Allergy Hives Verified 09/08/20 12:51 morphine AdvReac Chest Verified 09/08/20 12:51 tightness Social History Smoking Status: Current every day smoker tobacco type: cigarettes ROS ROS ED Constitutional Constitutional ED: Denies frequent falls ENT ENT ED: Denies sore throat Cardiovascular Cardiovascular: Denies chest pain, palpitations or racing heartbeat Respiratory/Chest Respiratory/Chest: Denies cough, dyspnea or dyspnea on exertion Gastrointestinal Gastrointestinal: Denies abdominal pain, nausea or vomiting Musculoskeletal Musculoskeletal: Reports myalgias and neck pain Integumentary Denies rash Neurologic Neurologic: Reports paresthesias; Denies headache(s) or weakness Psychiatric Psychiatric: Denies depression Hematologic/Lymphatic Hematologic/Lymphatic: Denies easy bleeding or easy bruising Allergic/Immunologic Allergic/Immunologic ED: Denies urticaria EXAM Physical Exam Const Vital Signs: 09/08/20 12:49 Temperature 99.1 F Temperature Source Temporal Pulse Rate 94 Respiratory Rate 16 Blood Pressure 175/99 H Blood Pressure Mean 124 Pulse Ox 98 Oxygen Delivery Method Room Air Positive well nourished and well developed General Appearance ED: well developed and NAD HEENT normocephalic and atraumatic Neck supple Neck Narrative: Patient does have some exacerbation of her symptoms with axial load of her spine. No focal tenderness externally though. Chest Wall inspection of chest normal Resp normal respiratory effort and clear to auscultation bilaterally Cardio regular rate and regular rhythm GI non-tender Palpation: soft Back/Spine no CVA tenderness Back/Spine Narrative: See above. Extremity normal to inspection Extremity Narrative: There is a little bit of crepitance with motion of left shoulder. But no significant pain with range of motion. Is not red or warm. She has good distal sensation. Great distal pulses and capillary refill. She can tell exactly what finger on touching. 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 Neuro oriented x3 Neuro Narrative: See above. Sensorium / Orientation: alert MDM MDM MDM Narrative Medical decision making narrative: Patient presents with pain on her left shoulder area and slightly in her neck. Occasionally will radiate down the arm. She has no trauma. I do not think x-rays are going to show us the cause of this. No sign of a septic joint. This ask like a cervical radiculopathy. We discussed altering the way she looks at her computer and sitting position. We will also use nonsteroidals. She will use ice and rest. If she develops weakness worsening pain, color change or other symptoms she should return. Discharge Plan Triage Chief Complaint: Upper Extremity Injury ED Provider: Carrington Watt Dx/Rx/DC Orders Clinical Impression: Cervical radiculopathy Instructions: ED Radiculopathy, Cervical Prescriptions: New naproxen [Naprosyn] 500 mg tablet 500 mg PO BID PRN (Reason: pain) Qty: 20 RF: 0 cyclobenzaprine 10 mg tablet 10 mg PO TID PRN (Reason: muscle spasm) Qty: 9 RF: 0 No Action methylphenidate HCl [Concerta] 54 mg Tablet Extended Release 24hr 54 mg PO DAILY RF: 0 loratadine [Claritin] 10 mg Tablet 10 mg PO DAILY PRN (Reason: allergies) RF: 0 Primary Care Provider: Rochelle Ramos Referrals: Rochelle Ramos MD [Primary Care Provider] - 3-5 Days if not improving Disposition Disposition: Home, Self Care
[2020-09-08] MEDS: Naproxen 375 MG Tablet PO (13:57)
== END 2020-09-08 14:00 | disposition home or self-care (01) ==
PROVIDERS: Emergency Provider Emergency Medicine; PCP Family Medicine
DX: M54.12 Radiculopathy, cervical region (principal); F98.8 Other specified behavioral and emotional disorders with onset usually occurring in childhood and adolescence; F17.210 Nicotine dependence, cigarettes, uncomplicated; Z79.899 Other long term (current) drug therapy
CPT/HCPCS: 99283

== ENCOUNTER 2020-09-21 15:20 | Emergency (ER) | payer OTHER, SELFPAY ==
[2020-09-21 15:22] VITALS: BP 180/116; PULSE 89; RESP 14; TEMP 36.8; O2SAT 98; BMI 31.9
--- NOTE | 2020-09-21 17:23 | EDS_ITS ---
HPI History of Present Illness HPI Narrative: Patient is a 40-year-old female who states that she has pain in her left arm without known injury. She states she was seen in the last few weeks for the same thing and told she had a pinched nerve. She states she took the medication and got better but once the medication ran out is having return of symptoms. She denies any trauma to the area or overuse syndrome. She does state that she does type all day however. She does report mild numbness and tingling into her first and second digit as well. She states she is traveling to [place] soon with a return of symptoms presents for repeat evaluation Chief Complaint: Upper Extremity Injury [facility] Medical History ADD (attention deficit disorder) Home Medications loratadine [Claritin] 10 mg PO DAILY PRN 09/08/20 [History Last Taken Unknown] methylphenidate HCl [Concerta] 54 mg PO DAILY 09/08/20 [History Last Taken Unkn own] methocarbamol 1,000 mg PO TID 7 Days #42 tab 09/21/20 [Rx Last Taken Unknown] prednisone 40 mg PO DAILY 7 Days #14 tab 09/21/20 [Rx Last Taken Unknown] Allergy/AdvReac Type Severity Reaction Status Date / Time adhesive Allergy Rash Verified 09/21/20 15:21 cephalexin monohydrate Allergy Hives Verified 09/21/20 15:21 [From Keflex] sulfamethoxazole Allergy Hives Verified 09/21/20 15:21 [From Bactrim] trimethoprim [From Bactrim] Allergy Hives Verified 09/21/20 15:21 morphine AdvReac Chest Verified 09/21/20 15:21 tightness Surgical History (Updated 09/21/20 @ 16:31 by Arline Barreto) History of delivery History of cholecystectomy Social History Smoking Status: Current every day smoker tobacco type: cigarettes ROS ROS ED Constitutional Constitutional ED: Denies chills or frequent falls ENT ENT ED: Denies sore throat Cardiovascular Cardiovascular: Denies chest pain Respiratory/Chest Respiratory/Chest: Denies cough Gastrointestinal Gastrointestinal: Denies nausea or vomiting Musculoskeletal Musculoskeletal: Reports myalgias Integumentary Denies Abrasions or rash Neurologic Neurologic: Reports paresthesias; Denies headache(s) or weakness Hematologic/Lymphatic Hematologic/Lymphatic: Denies easy bleeding or easy bruising EXAM Physical Exam Const Vital Signs: 09/21/20 15:22 Temperature 98.2 F Temperature Source Temporal Pulse Rate 89 Respiratory Rate 14 Blood Pressure 180/116 H Blood Pressure Mean 137 Pulse Ox 98 Oxygen Delivery Method Room Air Positive well nourished and well developed General Appearance ED: well developed HEENT normocephalic and atraumatic Eyes PERRL and EOMs intact bilaterally Neck supple Neck Narrative: No bony deformity or step-off of the cervical spine no midline pain on palpation. Patient does have positive Spurling sign towards the left however Chest Wall inspection of chest normal Resp normal respiratory effort and clear to auscultation bilaterally Cardio regular rate, regular rhythm and no murmurs Extremity Extremity Narrative: Left upper extremity is neurovascularly intact; AIN/PIN are intact and normal. Patient has full active range of motion. Patient does have positive Tinel's sign of the left wrist. Otherwise there is no bony deformity or joint effusion. No overlying soft tissue changes to suggest trauma or infection Neuro oriented x3 Sensorium / Orientation: alert and oriented to person Psych mental status grossly normal Skin Lesions: no lesions Rashes: no rashes MDM MDM MDM Narrative Medical decision making narrative: Patient presented to the ER with no report or signs of trauma. Her exam with positive Spurling sign is most consistent with cervical radiculopathy and she also changes consistent with carpal tunnel and a history that suggest this as well. We discussed possible imaging studies but as this would not change treatment patient does not want to perform at this time. Therefore I will place her on muscle relaxers and steroids to help with inflammation and she states she will wear her home wrist brace for the carpal tunnel. Patient be discharged at this time can follow-up with orthopedics for repeat evaluation Discharge Plan Triage Chief Complaint: Upper Extremity Injury ED Provider: Tr Rico Dx/Rx/DC Orders Clinical Impression: Cervical radiculopathy, Acute carpal tunnel syndrome of left wrist Instructions: Carpal Tunnel Syndrome, ED Radiculopathy, Cervical Prescriptions: New prednisone 20 mg tablet 40 mg PO DAILY 7 Days Qty: 14 RF: 0 methocarbamol 500 mg tablet 1,000 mg PO TID 7 Days Qty: 42 RF: 0 No Action methylphenidate HCl [Concerta] 54 mg Tablet Extended Release 24hr 54 mg PO DAILY RF: 0 loratadine [Claritin] 10 mg Tablet 10 mg PO DAILY PRN (Reason: allergies) RF: 0 Primary Care Provider: Rochelle Ramos Referrals: Rochelle Ramos MD [Primary Care Provider] - Jaden Frazier DO [STAFF PHYSICIAN] - 1-2 Weeks Disposition Disposition: Home, Self Care
[2020-09-21] MEDS: Orphenadrine 60 MG/2 ML Ampul IM (17:27)
[2020-09-21] MEDS: Ketorolac 30 MG/ML Syringe IM (17:28)
[2020-09-21] MEDS: predniSONE 20 MG Tablet 40 MG PO (17:28)
[2020-09-21 17:45] VITALS: BP 122/59; PULSE 74; RESP 16; O2SAT 97
== END 2020-09-21 17:46 | disposition home or self-care (01) ==
PROVIDERS: Emergency Provider Emergency Medicine; PCP Family Medicine
DX: M54.12 Radiculopathy, cervical region (principal); G56.02 Carpal tunnel syndrome, left upper limb; F17.210 Nicotine dependence, cigarettes, uncomplicated
CPT/HCPCS: 96372; 99283

== ENCOUNTER → 2020-11-20 15:21 | Outpatient (CLI) | payer OTHER, SELFPAY ==
--- NOTE | 2020-11-20 15:33 | MRI_ITS ---
STUDY: MRI CERVICAL SPINE WITHOUT CONTRAST REASON FOR EXAM: Female, 40 years old. RADICULOPATHY, tingling L fingers TECHNIQUE: Standardized fat and water weighted pulse sequences were obtained in the sagittal and axial planes. COMPARISON: None FINDINGS: Normal foramen magnum and brainstem-cervical cord junction. Normal craniovertebral junction. Normal anterior atlantoaxial articulation. Normal odontoid process. Normal cervical lordosis. Normal vertebral bodies and posterior osseous elements. C2-3: Normal endplates. Normal disc height, signal and morphology. Normal central canal and intervertebral neural foramina. C3-4: Normal endplates. Normal disc height, signal and morphology. Normal central canal and intervertebral neural foramina. C4-5: Normal endplates. Normal disc height, signal and morphology. Normal central canal and intervertebral neural foramina. C5-6: Moderate broad disc osteophyte complex produces moderate spinal stenosis with abutment of the central spinal cord. C6-7: Moderate broad disc osteophyte complex with a moderate-sized superiorly extending left paracentral disc extrusion produces moderate spinal stenosis with effacement the left hemicord and moderate left neural foraminal stenosis with abutment of the left C7 nerve root. C7-T1: Normal endplates. Normal disc height, signal and morphology. Normal central canal and intervertebral neural foramina. Normal cervical cord. Normal visualized soft tissue structures. MRI/Spine Cervical (Routine) IMPRESSION: Multilevel degenerative changes, as described above. Electronically Signed: Prashant Brito MD at 10:47 EDT Tel , Service support ,
== END ==
LOC: MRI 15:21
PROVIDERS: PCP Family Medicine; Visit Provider Physician Assistant Surgical
DX: M50.123 Cervical disc disorder at C6-C7 level with radiculopathy (principal)
CPT/HCPCS: 72141

== ENCOUNTER → 2022-01-22 | Outpatient (CLI) | payer OTHER, SELFPAY ==
--- NOTE | 2022-01-22 07:19 | BI_ITS ---
MAMMOGRAPHY - BILATERAL SCREENING REASON FOR EXAM: Female, 41 years old. Routine annual screening examination. PERTINENT HISTORY: Non-contributory. Remote right excisional breast biopsy. TECHNIQUE: Digital bilateral breast elizabeth (3D mammographic acquisition) in the CC and MLO projections. 2-D mediolateral oblique (MLO) and craniocaudad (CC) views of both breasts were obtained. CAD: Full Field Digital Mammography with Computer Added Detection was performed. COMPARISON: Comparison is made with prior examination dated 01/06/2016. FINDINGS: Breast Composition: The breasts are heterogeneously dense, which may obscure small masses. There is a 2 cm x 2.8 cm slightly irregular density in the upper deep posterior lateral aspect of the left breast. Correlation with ultrasound is recommended. The previously seen well-defined nodular densities in the upper outer quadrant of the left breast have decreased in size suggestive of a prior cyst drainage. No other significant abnormalities are identified. BI/SCRN MAMM (CAD)W/ELIZABETH BILAT IMPRESSION: 2 cm x 2.8 cm a slightly irregular density in the deep upper posterior aspect of the right breast. Correlation with ultrasound is recommended. ASSESSMENT CATEGORY: BIRADS Category 0: Incomplete. Need additional imaging evaluation. A letter regarding these results will be sent to the patient by the facility within 30 days. Approximately 10% of breast cancers are not detected by mammography. A normal mammogram should not delay biopsy of a clinically suspicious abnormality. [id number] Electronically Signed: Shilo Santos MD at 13:58 EST ,
== END | disposition home or self-care (01) ==
LOC: OPBI 07:17
PROVIDERS: PCP Family Medicine; Referring Provider Family Medicine; Visit Provider Family Medicine
DX: Z12.31 Encounter for screening mammogram for malignant neoplasm of breast (principal); Z92.89 Personal history of other medical treatment
CPT/HCPCS: 77063; 77067

== ENCOUNTER → 2022-01-27 | Outpatient (CLI) | payer OTHER, SELFPAY ==
--- NOTE | 2022-01-27 10:20 | US_ITS ---
STUDY: ULTRASOUND BREAST - LEFT REASON FOR EXAM: Female, 41 years old. Abnormal screening mammogram. TECHNIQUE: Axial and longitudinal images of the LEFT breast were performed with a high resolution ultrasound transducer. # OF IMAGES: [id number] COMPARISON: Comparison is made with prior mammogram dated 01/22/2022. FINDINGS: LEFT Breast: Targeted ultrasound of the upper-outer quadrant of the left breast was obtained. Multiple small cysts are seen. The largest cyst measures 7 mm x 10 mm x 4 mm. US/Breast Limited Unilateral IMPRESSION: Multiple small cysts are seen in the upper-outer quadrant of the left breast. ASSESSMENT CATEGORY: BIRADS Category 2: Benign. A letter regarding these results will be sent to the patient by the facility within 30 days. Electronically Signed: Shilo Santos MD at 10:51 EST ,
== END | disposition home or self-care (01) ==
PROVIDERS: PCP Family Medicine; Visit Provider Family Medicine
DX: R92.8 Other abnormal and inconclusive findings on diagnostic imaging of breast (principal)
CPT/HCPCS: 76642

== ENCOUNTER → 2023-01-18 | Outpatient (CLI) | payer OTHER, SELFPAY ==
[2023-01-18 17:41] LABS: Absolute Lymphocyte Count 2.38 X10^3/uL (0.83-4.51); Absolute Neutrophil Count 5.1 X10^3/uL (2.0-7.7); Basophil# 0.05 X10^3/uL; Basophil% 0.6 % (0-1); Eosinophil# 0.19 X10^3/uL; Eosinophils% 2.3 % (0-5); Hematocrit 43.8 % (37-47); Hemoglobin 14.5 g/dL (12.0-15.0); Lymphocyte # 2.38 X10^3/ul (0.83-4.51); Lymphocyte % 29.3 % (19-41); Mean Corp Hgb Conc 33.1 g/dL (32-36); Mean Corpuscular Hgb 30.2 pg (27.0-32.0); Mean Corpuscular Volume 91.3 fL (81-99); Mean Platelet Vol. 9.7 fl (6.2-12.0); Monocyte# 0.39 X10^3/uL; Monocyte% 4.8 % (0-10); NRBC Flagged by Analyzer 0 % (0-5); Neutrophil % 62.8 % (47-70); Platelet Count 378 K/mm3 (150-450); RBC Distribution Width CV 12.4 % (11.6-14.6); RBC Distribution Width SD 41.3 fl (35.1-43.9); White Blood Count 8.1 K/mm3 (4.4-11.0)
[2023-01-18 18:28] LABS: Anion Gap 7 (5-15); BUN 12 mg/dL (7-18); BUN/Creat Ratio 14.7 RATIO (10-20); Calcium,Total 9.3 mg/dL (8.5-10.1); Chloride 108 mmol/L (98-107); Cholesterol 212 mg/dL (200); Creatinine, Serum 0.82 mg/dL (0.55-1.02); EST Glomerular Filtration Rate 82 mL/min (>60); Est Glom Filt Rate - Afr Amer 99 mL/min (>60); Glucose 92 mg/dL (74-106); High Density Lipoprotein 57 mg/dL; Potassium 3.8 mmol/L (3.5-5.1); Sodium Level 138 mmol/L (136-145); Thyroid Stim Hormone (TSH) 1.68 uIU/mL (0.358-3.74); Triglycerides 99 mg/dL; Very Low Density Lipoprotein 20 mg/dL (5-40)
== END | disposition home or self-care (01) ==
LOC: MFPLAB 14:46
PROVIDERS: PCP Family Medicine; Visit Provider Family Medicine
DX: Z00.00 Encounter for general adult medical examination without abnormal findings (principal); R63.5 Abnormal weight gain
CPT/HCPCS: 36415; 80048; 80061; 84443; 85025

== ENCOUNTER → 2023-01-27 | Outpatient (CLI) | payer OTHER, SELFPAY ==
--- NOTE | 2023-01-27 07:21 | BI_ITS ---
MAMMOGRAPHY - BILATERAL SCREENING REASON FOR EXAM: Female, 42 years old. Routine annual screening examination. PERTINENT HISTORY: Non-contributory. Prior right excisional breast biopsy and breast aspiration. TECHNIQUE: Digital bilateral breast elizabeth (3D mammographic acquisition) in the CC and MLO projections. 2-D mediolateral oblique (MLO) and craniocaudad (CC) views of both breasts were obtained. CAD: Full Field Digital Mammography with Computer Added Detection was performed. COMPARISON: Comparison is made with prior study dated January 22, 2022. FINDINGS: Breast Composition: The breasts are heterogeneously dense, which may obscure small masses. There are no dominant masses or suspicious calcifications. The previously seen nodular density in the upper-outer quadrant of the left breast has cleared. No other significant abnormalities are identified. BI/SCRN MAMM (CAD)W/ELIZABETH BILAT IMPRESSION: Stable bilateral screening mammogram. Yearly follow-up mammogram recommended. (A) ASSESSMENT CATEGORY: BIRADS Category 2: Benign. A letter regarding these results will be sent to the patient by the facility within 30 days. Approximately 10% of breast cancers are not detected by mammography. A normal mammogram should not delay biopsy of a clinically suspicious abnormality. [id number] Electronically Signed: Shilo Santos MD at 9:39 EST ,
== END | disposition home or self-care (01) ==
LOC: OPBI 07:20
PROVIDERS: PCP Family Medicine; Referring Provider Family Medicine; Visit Provider Family Medicine
DX: Z12.31 Encounter for screening mammogram for malignant neoplasm of breast (principal)
CPT/HCPCS: 77063; 77067

== ENCOUNTER → 2023-08-18 | Outpatient (CLI) | payer SELFPAY ==
--- NOTE | 2023-08-18 14:07 | RAD_ITS ---
STUDY: X-RAY CHEST REASON FOR EXAM: Female, 43 years old. cough, posttussive emesis TECHNIQUE: PA and lateral views of the chest. COMPARISON: None. FINDINGS: Status post anterior cervical discectomy and fusion lower cervical spine The lungs are clear and expanded. There is no demonstrated pleural abnormality. Normal size heart. Normal mediastinum and andreas. Normal visualized pulmonary arteries. Normal visualized aortic arch and descending thoracic aorta. Normal visualized thoracic spine. Normal visualized ribs, clavicles, and shoulders. There is no demonstrated abnormality of the visualized soft tissue structures of the upper abdomen. RAD/Chest PA and Lateral IMPRESSION: No active disease Electronically Signed: Prashant Brito MD at 18:40 EDT ,
== END | disposition home or self-care (01) ==
PROVIDERS: PCP Family Medicine; Referring Provider Family Medicine; Visit Provider Family Medicine
DX: R11.10 Vomiting, unspecified (principal)
CPT/HCPCS: 71046

== ENCOUNTER → 2023-09-21 | Outpatient (CLI) | payer OTHER, SELFPAY ==
--- NOTE | 2023-09-21 10:59 | RAD_ITS ---
INDICATION: cough EXAMINATION/TECHNIQUE: X-RAY - XR Chest 2 Views COMPARISON: Prior study dated: 08/18/2023 FINDINGS: LINES/DEVICES: None. LUNGS: No consolidation, edema or effusion. No pneumothorax. MEDIASTINUM AND CARDIOVASCULAR STRUCTURES: Cardiac silhouette not enlarged. Central airways and mediastinal contour are unremarkable. BONES AND SOFT TISSUES: Anterior fusion of the lower cervical spine unchanged. RAD/Chest PA and Lateral IMPRESSION: No radiographic evidence of acute cardiopulmonary disease. Electronically Signed: Jung Mathews MD at 12:00 EDT ,
== END | disposition home or self-care (01) ==
PROVIDERS: PCP Family Medicine; Referring Provider Physician Assistant; Visit Provider Physician Assistant
DX: R05.9 Cough, unspecified (principal)
CPT/HCPCS: 71046

== ENCOUNTER → 2024-02-14 | Outpatient (CLI) | payer OTHER, SELFPAY ==
[2024-02-17 10:07] LABS: HPV APTIMA, High Risk Negative (Negative)
[2024-02-17 14:01] LABS: HPV Reflexed? YES, CHARGE PATIENT
== END | disposition home or self-care (01) ==
LOC: LABSPEC 15:30
PROVIDERS: PCP Family Medicine; Referring Provider Family Medicine; Visit Provider Family Medicine
DX: Z12.4 Encounter for screening for malignant neoplasm of cervix (principal)
CPT/HCPCS: 87624; 88175; G0145

== ENCOUNTER → 2024-02-15 | Outpatient (CLI) | payer OTHER, SELFPAY ==
[2024-02-15 19:45] LABS: Hemoglobin A1c 5.8 % (3.8-5.6)
== END | disposition home or self-care (01) ==
LOC: MFPLAB 16:11
PROVIDERS: PCP Family Medicine; Referring Provider Family Medicine; Visit Provider Family Medicine
DX: E66.01 Morbid (severe) obesity due to excess calories (principal)
CPT/HCPCS: 36415; 83036; 84443

== ENCOUNTER → 2024-10-12 | Outpatient (CLI) | payer BC, SELFPAY ==
[2024-10-12 18:02] LABS: Hematocrit 42.9 % (37-47); Hemoglobin 14.1 g/dL (12.0-15.0); Immature Granulocytes Count 0.020 X10^3/uL (0.0-0.0); Mean Corp Hgb Conc 32.9 g/dL (32-36); Mean Corpuscular Volume 93.5 fL (81-99); Mean Platelet Vol. 9.8 fl (6.2-12.0); NRBC Flagged by Analyzer 0 % (0-5); Platelet Count 419 K/mm3 (150-450); RBC Distribution Width CV 12.1 % (11.6-14.6); RBC Distribution Width SD 42.3 fl (35.1-43.9); Red Blood Count 4.59 M/mm3 (4.2-5.4); White Blood Count 9.1 K/mm3 (4.4-11.0)
[2024-10-12 18:42] LABS: AST(SGOT) 18 U/L (<=31); Alanine Aminotransfer ALT/SGPT 13 U/L (<=34); Albumin, Serum 4.5 g/dL (3.5-5.0); Alkaline Phosphatase 54 U/L (35-104); Anion Gap 12 (5-15); BUN 9 mg/dL (4-19); BUN/Creat Ratio 11.0 RATIO (10-20); Calcium,Total 9.7 mg/dL (7.6-11.0); Carbon Dioxide 23.4 mmol/L (21.0-32.0); Chloride 102 mmol/L (98-108); Cholesterol 205 mg/dL (<=200); Globulin 3.2 g/dL (2.2-4.2); Glucose 95 mg/dL (70-99); Low Density Lipoprotein Calc. 130 mg/dL; Potassium 4.3 mmol/L (3.3-5.1); Triglycerides 125 mg/dL; Very Low Density Lipoprotein 25 mg/dL (5-40); cholesterol:hdl ratio screen 4.09
== END | disposition home or self-care (01) ==
PROVIDERS: PCP Family Medicine; Referring Provider Family Medicine; Visit Provider Family Medicine
DX: E66.01 Morbid (severe) obesity due to excess calories (principal); R73.02 Impaired glucose tolerance (oral); R53.83 Other fatigue
CPT/HCPCS: 36415; 80053; 80061; 83036; 84439; 84443; 85025